=== PATIENT | male | born 1995 | race Caucasian/White ===

== ENCOUNTER 2024-11-24 19:27 | Emergency (ER) | payer SELFPAY ==
[2024-11-24 19:29] VITALS: BP 133/99; PULSE 98; RESP 20; TEMP 37.7; O2SAT 96; BMI 32.0
--- NOTE | 2024-11-24 19:48 | XR_ITS ---
PROCEDURE INFORMATION: Exam: XR Chest Exam date and time: 11/24/2024 7:45 PM Age: 29 years old Clinical indication: Cough and shortness of breath; Additional info: walter BOURGEOIS TECHNIQUE: Imaging protocol: Radiologic exam of the chest. Views: 2 views. COMPARISON: No relevant prior studies available. FINDINGS: Lungs: Unremarkable. No consolidation. Pleural spaces: Unremarkable. No pleural effusion. No pneumothorax. Heart/Mediastinum: Unremarkable. No cardiomegaly. Bones/joints: Unremarkable. IMPRESSION: No acute findings.
--- NOTE | 2024-11-24 19:48 | ED_ITS ---
Discharge Plan Disposition Patient Disposition: Home, Self-Care Condition: Good Prescriptions Prescriptions: New doxycycline hyclate 100 mg capsule 100 mg PO BID 7 Days Qty: 14 0RF Referrals Follow up/Referrals: Provider,Referral, MD [Primary Care Provider] - See instructions Activity Restrictions/Add. Instructions Additional Instructions/Restrictions: Start antibiotic. Be sure to complete entire prescription even if feeling better Tylenol and ibuprofen as needed for pain or fever Humidifier/vaporizer/hot steamy shower Follow-up with primary care Tuesday Follow-up immediately in the ER of the [facility] for new or worsening symptoms or no noticeable improvement over the next 48-72 hours. Stop smoking Clinical Impressions Clinical Impression: Influenza A Pneumonia Qualifiers: Pneumonia type: due to influenza A virus Qualified Code(s): J10.00 - Influenza due to other identified influenza virus with unspecified type of pneumonia Instructions Patient Instructions: Pneumonia--Adult, DI for Influenza -- Adult Print Language Print Language: Uzbek Discharge ED Provider: Sharath Carpenter General Adult HPI <Dalila Morton ([facility]), DIE OUT WORKER - Last Filed: 11/24/24 20:52> General Chief complaint: Upper Respiratory Infection Stated complaint: Flu + SOA painful breathing, body aches Time Seen by Provider: 11/24/24 19:42 Mode of Arrival: Ambulatory Source of Information: Patient Limitations: No Limitations Description of Symptoms (Recalled from ER Triage Doc. by RN): Pt here w/ c/o possible bronchitis/PNA per pt. Reports testing + for flu A yesterday. fever/cough/soa x2 days. Last tylenol @ 1900 History of Present Illness HPI narrative: 29-year-old male presents for complaints of shortness of breath, fever, and short of air since yesterday. Patient states he started getting sick yesterday and was seen and diagnosed with flu A. Patient states today he feels shortness of air and worried he might have bronchitis or pneumonia. Related Data Previous Rx's ?Medication ?Instructions ?Recorded doxycycline hyclate 100 mg capsule 100 mg PO BID 7 days #14 caps 11/24/24 Allergies Allergy/AdvReac Type Severity Reaction Status Date / Time No Known Allergies Allergy Verified 11/24/24 19:47 PFSH <Dalila Morton ([facility]), DIE OUT WORKER - Last Filed: 11/24/24 20:52> [facility] Disclaimer: The information contained in this section may have been updated after the patient was seen, as this information can be updated by other users. Social History (Updated 11/24/24 @ 20:52 by Dalila [facility] DIE OUT WORKER) Smoking Status: Never smoker alcohol intake: never current occupational status: employed Travel in the last 8 weeks: None Have you lived/traveled outside [place] in past 30 days?: No Contact w/someone who lives/traveled outside [place] past 30 days?: No Exposure to someone with infectious disease in past 14 days?: No Do you have a fever (greater than 100.4 F or 38 C)?: No Have you tested positive for COVID-19: No Exposed to someone with COVID-19 in past 14 days?: No Do you have a sore throat?: No Do you have a cough?: No Do you have any weakness?: Yes Do you have any diarrhea?: No Are you experiencing any unusual bleeding?: No Do you have any muscle aches/pain?: Yes Do you have any abdominal pain?: No Are you experiencing loss of taste or smell?: No <Dalila Morton ([facility]), DIE OUT WORKER - Last Filed: 11/24/24 20:52> ROS Obtained: Yes Systems reviewed as appropriate & no additional complaints except as documented Physical Exam <[facility] DIE OUT WORKER - Last Filed: 11/24/24 20:52> General General appearance: alert and in no apparent distress ENT ENT exam: Present normal exam, normal oropharynx, mucous membranes moist and TM's normal bilaterally Respiratory Respiratory exam: Present other Expanded Respiratory Exam Location: Right: decreased breath sounds and Upper: decreased breath sounds Cardiovascular Cardiovascular exam: Present regular rate and normal rhythm Neurological Exam Neurological exam: Present alert and oriented X3 Skin Skin exam: Present warm and intact Medical Decision Making <[facility] DIE OUT WORKER - Last Filed: 11/24/24 20:52> Medical Records Medical records reviewed: Yes I reviewed the patient's medical records. Screening: Per USPSTF and CDC recommendations, given the prevalence of disease in our region, it is our hospital?s policy to screen for HIV and viral Hepatitis for all patients aged 18 and over and those with ongoing risk factors. Evan Inquiry Pt receiving controlled substance: No Evan was queried for this patient: No Vital Signs: 11/24/24 19:29 Temperature 99.8 F H Temperature Source Oral Pulse Rate [Apical] 98 H Respiratory Rate 20 Blood Pressure [Right Arm] 133/99 H Blood Pressure Mean [Right Arm] 110 02 Sat by Pulse Oximetry 96 Oxygen Delivery Method Room Air Lab Data Lab results reviewed: Yes I reviewed the patient's lab results. Lab Results 11/24/24 20:25: WBC 6.4, RBC 5.07, Hgb 14.9, Hct 43.0, MCV 84.8, MCH 29.4, MCHC 34.7, RDW 12.2, Plt Count 229, MPV 10.4, Neut % (Auto) 70.5, Lymph % (Auto) 15.7, [place] % (Auto) 11.6 H, Eos % (Auto) 1.6, Baso % (Auto) 0.3, Neut # (Auto) 4.5, Lymph # (Auto) 1.0, [place] # (Auto) 0.8, Eos # (Auto) 0.1, Baso # (Auto) 0.0, Sodium 135 L, Potassium 4.3, Chloride 103, Carbon Dioxide 24, Anion Gap 12.3, BUN 14, Creatinine 1.10, Estimated Creat Clear 166, Estimated GFR 80, Est GFR ( Amer) 97, Glucose 108 H, Calcium 9.5, Total Bilirubin 0.9, AST 95 H, A LT 108 H, Alkaline Phosphatase 67, Total Protein 7.4, Albumin 4.5, Globulin 2.9, Albumin/Globulin Ratio 1.6 11/24/24 20:25 11/24/24 20:25 Orders (Tests/Meds): ED MEDICATIONS Generic Name Dose Route Start Last Admin Trade Name Freq PRN Reason Stop Dose Admin Doxycycline Hyclate 100 mg 11/24/24 21:00 11/24/24 20:55 Doxycycline Hycl 100 Mg Tablet PO 12/04/24 20:59 100 mg Q12H MANDA Administration ORDERS Category Date Time Status Chest XR 2 view (NOT portable) [XR chest 2V] Stat Exams 11/24/24 19:48 Taken CBC [Complete Blood Count Auto Diff] Stat Lab 11/24/24 20:25 Completed CMP [Comprehensive Metabolic Panel] Stat Lab 11/24/24 20:25 Completed HIV Combo Stat Lab 11/24/24 20:25 Received Hep C Ab with Reflex to RNA Stat Lab 11/24/24 20:25 Received Medical Decision Narrative: In summary patient is a 29-year-old male who presents to the emergency department for evaluation of congestion, fever, short of air with positive influenza A. Patient is hemodynamically stable upon arrival, febrile. Unremarkable physical exam. Differential diagnosis includes flu, bronchitis, pneumonia. Initial workup will be conducted with chest x-ray, labs. Initial inventions include monitoring of vital signs, chest x-ray, labs. Initial workup reviewed by in labs unremarkable, chest x-ray shows pneumonia. Upon repeat evaluation patient was sitting up in the chair vital signs stable O2 96% on room air respiratory rate of 20.. Given this patient appropriate discharge at this time will discharge home with prescription of doxycycline for 7 days and close follow-up with PCP I informally interpreted patient's chest x-ray -pneumonia <Sharath Carpenter MD - Last Filed: 11/24/24 20:58> Vital Signs: 11/24/24 19:29 Temperature 99.8 F H Temperature Source Oral Pulse Rate [Apical] 98 H Respiratory Rate 20 Blood Pressure [Right Arm] 133/99 H Blood Pressure Mean [Right Arm] 110 02 Sat by Pulse Oximetry 96 Oxygen Delivery Method Room Air Lab Data Lab Results 11/24/24 20:25: WBC 6.4, RBC 5.07, Hgb 14.9, Hct 43.0, MCV 84.8, MCH 29.4, MCHC 34.7, RDW 12.2, Plt Count 229, MPV 10.4, Neut % (Auto) 70.5, Lymph % (Auto) 15.7, [place] % (Auto) 11.6 H, Eos % (Auto) 1.6, Baso % (Auto) 0.3, Neut # (Auto) 4.5, Lymph # (Auto) 1.0, [place] # (Auto) 0.8, Eos # (Auto) 0.1, Baso # (Auto) 0.0, Sodium 135 L, Potassium 4.3, Chloride 103, Carbon Dioxide 24, Anion Gap 12.3, BUN 14, Creatinine 1.10, Estimated Creat Clear 166, Estimated GFR 80, Est GFR ( Amer) 97, Glucose 108 H, Calcium 9.5, Total Bilirubin 0.9, AST 95 H, A LT 108 H, Alkaline Phosphatase 67, Total Protein 7.4, Albumin 4.5, Globulin 2.9, Albumin/Globulin Ratio 1.6 Orders (Tests/Meds): ED MEDICATIONS Generic Name Dose Route Start Last Admin Trade Name Carrie PRN Reason Stop Dose Admin Doxycycline Hyclate 100 mg 11/24/24 21:00 11/24/24 20:55 Doxycycline Hycl 100 Mg Tablet PO 12/04/24 20:59 100 mg Q12H MANDA Administration ORDERS Category Date Time Status Chest XR 2 view (NOT portable) [XR chest 2V] Stat Exams 11/24/24 19:48 Taken CBC [Complete Blood Count Auto Diff] Stat Lab 11/24/24 20:25 Completed CMP [Comprehensive Metabolic Panel] Stat Lab 11/24/24 20:25 Completed HIV Combo Stat Lab 11/24/24 20:25 Received Hep C Ab with Reflex to RNA Stat Lab 11/24/24 20:25 Received Medical Decision Narrative: In summary patient is a 29-year-old male who presents to the emergency department for evaluation of congestion, fever, short of air with positive influenza A. Patient is hemodynamically stable upon arrival, febrile. Unremarkable physical exam. Differential diagnosis includes flu, bronchitis, pneumonia. Initial workup will be conducted with chest x-ray, labs. Initial inventions include monitoring of vital signs, chest x-ray, labs. Initial workup reviewed by me labs unremarkable, chest x-ray shows pneumonia. Upon repeat evaluation patient was sitting up in the chair vital signs stable O2 96% on room air respiratory rate of 20.. Given this patient appropriate discharge at this time will discharge home with prescription of doxycycline for 7 days and close follow-up with PCP I informally interpreted patient's chest x-ray -pneumonia I was consulted by the YAMIL, and we discussed the complexity of the problems being addressed. I approved the treatment and management plan for this patient's care in the Emergency Department, thus performing a substantive portion of the medical decision making. Sharath Carpenter MD Critical Care <Dalila Morton ([facility]), DIE OUT WORKER - Last Filed: 11/24/24 20:52> Critical Care Time Critical Care Time: No
[2024-11-24 20:31] LABS: Basophils % 0.3 % (0.1-2.0); Eosinophils # 0.1 K/mm3 (0.0-0.4); Eosinophils % 1.6 % (0.1-12.0); Hemoglobin 14.9 g/dL (14.1-18.0); Lymphocytes % 15.7 % (10-50); Mean Corpuscular HGB Conc 34.7 g/dL (31.8-35.4); Mean Corpuscular Hemoglobin 29.4 pg (27.0-31.2); Mean Corpuscular Volume 84.8 fl (80-94); Mean Platelet Volume 10.4 fl (7.4-10.4); Monocytes # 0.8 K/mm3 (0.1-1.0); Monocytes % 11.6 % (1.7-9.3); Neutrophils # 4.5 K/mm3 (1.8-7.8); Neutrophils % 70.5 % (37.0-80.0); Platelet Count 229 K/mm3 (142-424); Red Blood Count 5.07 M/mm3 (4.60-6.20); Red Cell Distribution Width 12.2 % (11.5-17.5); White Blood Count 6.4 K/mm3 (4.8-10.8)
[2024-11-24 20:41] LABS: Albumin Level 4.5 g/dl (3.5-5.0); Chloride 103 mmol/L (98-107)
[2024-11-24 20:42] LABS: Potassium 4.3 mmoL/L (3.5-5.1); Sodium 135 mmol/L (136-145)
[2024-11-24 20:44] LABS: Alanine Aminotransferase 108 U/L (12-78); Anion Gap 12.3 mEq/L (5-15); Aspartate Amino Transferase 95 U/L (17-59); Blood Urea Nitrogen 14 mg/dl (9-20); Carbon Dioxide 24 mmol/L (22.0-30.0); Creatinine Clearance Estimated 166 mL/min (50-200); Estimated Glomerular Filt Rate 80 ml/min (>60); GFR (African American) 97 ML/MIN (>60)
[2024-11-24 20:45] LABS: Albumin/Globulin Ratio 1.6 (1.1-1.8); Alkaline Phosphatase 67 U/L (38-126); Bilirubin,Total 0.9 mg/dl (0.2-1.3); Calcium 9.5 mg/dl (8.4-10.2); Globulin 2.9 g/dL (1.3-3.2); Glucose 108 mg/dl (74-100); Total Protein,Serum 7.4 g/dl (6.3-8.2)
[2024-11-24] MEDS: DOXYCYCLINE HYCL 100 MG TABLET PO (20:55)
[2024-11-24 20:57] VITALS: BP 127/90; PULSE 88; RESP 20; TEMP 37.1
[2024-11-24 21:37] LABS: HIV Combo NEGATIVE (Negative)
[2024-11-26 11:08] LABS: HCV Ab Non Reactive (Non Reactive)
== END 2024-11-24 20:58 | disposition home or self-care (01) ==
PROVIDERS: Nurse Practitioner Family; Emergency Provider Emergency Medicine
DX: R50.9 Fever, unspecified (principal); R05.9 Cough, unspecified; R06.02 Shortness of breath; R09.81 Nasal congestion; J10.00 Influenza due to other identified influenza virus with unspecified type of pneumonia
CPT/HCPCS: 71046; 80053; 85025; 86803; 87389; 99283